=== PATIENT | female | born 1965 | race Caucasian/White ===

== ENCOUNTER 2022-07-28 07:47 | Outpatient (CLI) | payer BC, SELFPAY ==
--- NOTE | 2022-07-28 09:30 | CRLHL7_ITS ---
For Patients: As a result of the Cures Act, medical imaging exams and procedure reports are released immediately into your electronic medical record. You may view this report before your referring provider. If you have questions, please contact your health care provider. Indication: ULCER Technique: Three views left great toe Comparison: None Findings: Soft tissue swelling and soft tissue ulceration noted. Chronic density dorsal to the IP joint. No periostitis, fracture or cortical destruction. No synovitis. Impression: No evidence of osteomyelitis. Dictated by Eduardo Gaspar MD @ 07/28/2022 11:00:42 AM (Electronically Signed)
== END 2022-07-28 07:48 | disposition home or self-care (01) ==
PROVIDERS: Visit Provider Nurse Practitioner Family
DX: E11.621 Type 2 diabetes mellitus with foot ulcer (principal); L97.522 Non-pressure chronic ulcer of other part of left foot with fat layer exposed; G10 Huntington's disease; Z79.4 Long term (current) use of insulin; Z79.84 Long term (current) use of oral hypoglycemic drugs
CPT/HCPCS: 11042; 73660; 99203

== ENCOUNTER 2022-08-11 08:43 | Outpatient (CLI) | payer BC, SELFPAY | END 2022-08-11 08:44 | disposition home or self-care (01) | LOC: WOUND 08:43 | PROVIDERS: Visit Provider Nurse Practitioner Family | DX: E11.621 Type 2 diabetes mellitus with foot ulcer (principal); L97.522 Non-pressure chronic ulcer of other part of left foot with fat layer exposed; Z79.4 Long term (current) use of insulin; Z79.84 Long term (current) use of oral hypoglycemic drugs | CPT/HCPCS: 11042 ==

== ENCOUNTER 2022-08-18 08:41 | Outpatient (CLI) | payer BC, SELFPAY | END 2022-08-18 08:42 | disposition home or self-care (01) | LOC: WOUND 08:41 | PROVIDERS: Visit Provider Nurse Practitioner Family | DX: E11.621 Type 2 diabetes mellitus with foot ulcer (principal); L97.522 Non-pressure chronic ulcer of other part of left foot with fat layer exposed; G10 Huntington's disease; Z79.4 Long term (current) use of insulin; Z79.84 Long term (current) use of oral hypoglycemic drugs | CPT/HCPCS: 11042 ==

== ENCOUNTER 2022-09-03 08:43 | Outpatient (CLI) | payer BC, SELFPAY | END 2022-09-03 08:44 | disposition home or self-care (01) | LOC: WOUND 08:44 | PROVIDERS: Visit Provider Nurse Practitioner Family | DX: E11.621 Type 2 diabetes mellitus with foot ulcer (principal); L97.522 Non-pressure chronic ulcer of other part of left foot with fat layer exposed; G10 Huntington's disease; Z79.4 Long term (current) use of insulin; Z79.84 Long term (current) use of oral hypoglycemic drugs | CPT/HCPCS: 11042 ==

== ENCOUNTER 2022-09-17 08:39 | Outpatient (CLI) | payer BC, SELFPAY | END 2022-09-17 08:40 | disposition home or self-care (01) | LOC: WOUND 08:39 | PROVIDERS: Visit Provider Nurse Practitioner Family | DX: E11.621 Type 2 diabetes mellitus with foot ulcer (principal); L97.522 Non-pressure chronic ulcer of other part of left foot with fat layer exposed; G10 Huntington's disease; Z79.4 Long term (current) use of insulin; Z79.84 Long term (current) use of oral hypoglycemic drugs | CPT/HCPCS: 11042 ==

== ENCOUNTER 2022-10-01 09:11 | Outpatient (CLI) | payer BC, SELFPAY | END 2022-10-01 09:12 | disposition home or self-care (01) | PROVIDERS: Visit Provider Nurse Practitioner Family | DX: E11.621 Type 2 diabetes mellitus with foot ulcer (principal); L97.522 Non-pressure chronic ulcer of other part of left foot with fat layer exposed; G10 Huntington's disease; Z79.4 Long term (current) use of insulin; Z79.84 Long term (current) use of oral hypoglycemic drugs | CPT/HCPCS: 97597 ==

== ENCOUNTER 2022-10-29 09:13 | Outpatient (CLI) | payer BC, SELFPAY | END 2022-10-29 09:14 | disposition home or self-care (01) | LOC: WOUND 09:13 | PROVIDERS: Visit Provider Nurse Practitioner Family | DX: E11.621 Type 2 diabetes mellitus with foot ulcer (principal); L97.522 Non-pressure chronic ulcer of other part of left foot with fat layer exposed; Z79.84 Long term (current) use of oral hypoglycemic drugs; Z79.4 Long term (current) use of insulin | CPT/HCPCS: 11042 ==

== ENCOUNTER 2022-11-12 08:41 | Outpatient (CLI) | payer BC, SELFPAY | END 2022-11-12 08:42 | disposition home or self-care (01) | LOC: WOUND 08:41 | PROVIDERS: Visit Provider Nurse Practitioner Family | DX: E11.621 Type 2 diabetes mellitus with foot ulcer (principal); L97.522 Non-pressure chronic ulcer of other part of left foot with fat layer exposed; G10 Huntington's disease; Z79.4 Long term (current) use of insulin; Z79.84 Long term (current) use of oral hypoglycemic drugs | CPT/HCPCS: 11042 ==

== ENCOUNTER 2022-11-25 14:24 | Outpatient (CLI) | payer BC, SELFPAY | END 2022-11-25 14:25 | disposition home or self-care (01) | LOC: WOUND 14:24 | PROVIDERS: Visit Provider Nurse Practitioner Family | DX: E11.621 Type 2 diabetes mellitus with foot ulcer (principal); L97.522 Non-pressure chronic ulcer of other part of left foot with fat layer exposed; Z79.4 Long term (current) use of insulin; Z79.84 Long term (current) use of oral hypoglycemic drugs; G10 Huntington's disease | CPT/HCPCS: 97597 ==

== ENCOUNTER 2022-12-10 09:25 | Outpatient (CLI) | payer BC, SELFPAY | END 2022-12-10 09:26 | disposition home or self-care (01) | LOC: WOUND 09:25 | PROVIDERS: PCP Physician Assistant; Visit Provider Nurse Practitioner Family | DX: E11.621 Type 2 diabetes mellitus with foot ulcer (principal); L97.522 Non-pressure chronic ulcer of other part of left foot with fat layer exposed; G10 Huntington's disease; Z79.4 Long term (current) use of insulin; Z79.84 Long term (current) use of oral hypoglycemic drugs | CPT/HCPCS: 11042; 87070; 87186 ==

== ENCOUNTER 2022-12-21 08:30 | Outpatient (CLI) | payer BC, SELFPAY | END 2022-12-21 08:31 | disposition home or self-care (01) | LOC: WOUND 08:30 | PROVIDERS: Visit Provider Nurse Practitioner Family | DX: E11.621 Type 2 diabetes mellitus with foot ulcer (principal); L97.522 Non-pressure chronic ulcer of other part of left foot with fat layer exposed; G10 Huntington's disease; R19.7 Diarrhea, unspecified; G47.09 Other insomnia; C50.919 Malignant neoplasm of unspecified site of unspecified female breast; Z79.4 Long term (current) use of insulin; Z79.84 Long term (current) use of oral hypoglycemic drugs | CPT/HCPCS: 11042 ==

== ENCOUNTER 2023-02-11 07:49 | Outpatient (CLI) | payer BC, SELFPAY | END 2023-02-11 07:50 | disposition home or self-care (01) | LOC: WOUND 07:49 | PROVIDERS: PCP Physician Assistant; Visit Provider Family Medicine | DX: E11.621 Type 2 diabetes mellitus with foot ulcer (principal); L97.522 Non-pressure chronic ulcer of other part of left foot with fat layer exposed; G10 Huntington's disease; Z79.4 Long term (current) use of insulin; Z79.84 Long term (current) use of oral hypoglycemic drugs | CPT/HCPCS: 11043 ==

== ENCOUNTER 2023-03-11 10:19 | Outpatient (CLI) | payer BC, SELFPAY | END 2023-03-11 10:20 | disposition home or self-care (01) | LOC: WOUND 10:20 | PROVIDERS: PCP Physician Assistant; Visit Provider Nurse Practitioner Family | DX: E11.621 Type 2 diabetes mellitus with foot ulcer (principal); L97.522 Non-pressure chronic ulcer of other part of left foot with fat layer exposed; G10 Huntington's disease; Z79.4 Long term (current) use of insulin; Z79.84 Long term (current) use of oral hypoglycemic drugs | CPT/HCPCS: 97597 ==

== ENCOUNTER 2023-04-01 08:08 | Outpatient (CLI) | payer BC, SELFPAY | END 2023-04-01 08:09 | disposition home or self-care (01) | LOC: WOUND 08:08 | PROVIDERS: PCP Physician Assistant; Visit Provider Nurse Practitioner Family | DX: E11.621 Type 2 diabetes mellitus with foot ulcer (principal); L97.522 Non-pressure chronic ulcer of other part of left foot with fat layer exposed; G10 Huntington's disease; Z79.4 Long term (current) use of insulin; Z79.84 Long term (current) use of oral hypoglycemic drugs | CPT/HCPCS: 11042; 99212 ==

== ENCOUNTER 2023-04-15 08:04 | Outpatient (CLI) | payer BC, SELFPAY | END 2023-04-15 08:05 | disposition home or self-care (01) | LOC: WOUND 08:04 | PROVIDERS: PCP Physician Assistant; Visit Provider Nurse Practitioner Family | DX: E11.621 Type 2 diabetes mellitus with foot ulcer (principal); L97.525 Non-pressure chronic ulcer of other part of left foot with muscle involvement without evidence of necrosis; Z79.4 Long term (current) use of insulin; Z79.84 Long term (current) use of oral hypoglycemic drugs | CPT/HCPCS: 11042 ==

== ENCOUNTER 2023-04-27 09:43 | Outpatient (CLI) | payer BC, SELFPAY | END 2023-04-27 09:44 | disposition home or self-care (01) | PROVIDERS: PCP Physician Assistant; Visit Provider Nurse Practitioner Family | DX: E11.621 Type 2 diabetes mellitus with foot ulcer (principal); L97.525 Non-pressure chronic ulcer of other part of left foot with muscle involvement without evidence of necrosis; Z79.4 Long term (current) use of insulin; Z79.84 Long term (current) use of oral hypoglycemic drugs | CPT/HCPCS: 11042 ==

== ENCOUNTER 2023-05-27 08:04 | Outpatient (CLI) | payer BC, SELFPAY | END 2023-05-27 08:05 | disposition home or self-care (01) | LOC: WOUND 08:04 | PROVIDERS: PCP Physician Assistant; Visit Provider Nurse Practitioner Family | DX: E11.621 Type 2 diabetes mellitus with foot ulcer (principal); L97.525 Non-pressure chronic ulcer of other part of left foot with muscle involvement without evidence of necrosis; G10 Huntington's disease; Z79.4 Long term (current) use of insulin; Z79.84 Long term (current) use of oral hypoglycemic drugs | CPT/HCPCS: 11042 ==

== ENCOUNTER 2023-06-24 08:06 | Outpatient (CLI) | payer BC, SELFPAY | END 2023-06-24 08:07 | disposition home or self-care (01) | LOC: WOUND 08:06 | PROVIDERS: PCP Physician Assistant; Visit Provider Nurse Practitioner Family | DX: E11.621 Type 2 diabetes mellitus with foot ulcer (principal); L97.525 Non-pressure chronic ulcer of other part of left foot with muscle involvement without evidence of necrosis; G10 Huntington's disease; Z79.4 Long term (current) use of insulin; Z79.84 Long term (current) use of oral hypoglycemic drugs | CPT/HCPCS: 11042 ==

== ENCOUNTER 2023-07-08 08:00 | Outpatient (CLI) | payer BC, SELFPAY | END 2023-07-08 08:01 | disposition home or self-care (01) | LOC: WOUND 08:00 | PROVIDERS: PCP Physician Assistant; Visit Provider Nurse Practitioner Family | DX: E11.621 Type 2 diabetes mellitus with foot ulcer (principal); L97.525 Non-pressure chronic ulcer of other part of left foot with muscle involvement without evidence of necrosis; G10 Huntington's disease; Z79.4 Long term (current) use of insulin; Z79.84 Long term (current) use of oral hypoglycemic drugs | CPT/HCPCS: 11042 ==